=== PATIENT | male | born 1970 | race African-American/Black ===

== ENCOUNTER 2019-03-23 08:10 | Emergency (ER) | payer OTHER ==
[~2019-03-23] VITALS: Ht 172.7 cm; Wt 71.7 kg
[2019-03-23 08:14] VITALS: Ht 172.7 cm; Wt 71.7 kg
[2019-03-23 10:04] VITALS: BP 133/92
== END 2019-03-23 10:04 | disposition home or self-care (01) ==
LOC: ED 08:10
DX: F10.239 Alcohol dependence with withdrawal, unspecified (principal)
CPT/HCPCS: J2060; Q0163